=== PATIENT | female | born 1945 | race Two or more races ===

== ENCOUNTER 2021-05-30 10:16 | Outpatient (CLI) | payer MEDICARE | END 2021-05-30 10:17 | disposition home or self-care (01) | LOC: RAD 10:16 | PROVIDERS: ATTEND Internal Medicine | DX: R11.2 Nausea with vomiting, unspecified (principal); K44.9 Diaphragmatic hernia without obstruction or gangrene | CPT/HCPCS: 74246; 76700 ==

== ENCOUNTER 2023-03-09 14:23 | Outpatient (CLI) | payer MEDICARE | END 2023-03-09 14:24 | disposition home or self-care (01) | LOC: SCSRAD 14:23 | PROVIDERS: ATTEND Nurse Practitioner Family | DX: M25.551 Pain in right hip (principal); M16.11 Unilateral primary osteoarthritis, right hip ==